=== PATIENT | female | born 1995 | race Caucasian/White ===

== ENCOUNTER 2017-11-12 14:20 | Emergency (ER) | payer OTHER ==
--- NOTE | 2017-11-12 14:33 | UC ---
Throat Pain/Nasal Jogre HPI - HPI Summary HPI Summary: Pt presents with fatigue, body aches, sinus pain/pressure/congestion, and dry cough for the last 5 days. Has been taking mucinex OTC with no relief. Denies fever, chills, SOB, chest pain, abdominal pain, n/v/d/c. - History of Current Complaint Hx Obtained From: Patient Hx Last Menstrual Period: 08/31/15 Onset/Duration: Gradual Onset Severity: Moderate Pain Intensity: 7 Pain Scale Used: 0-10 Numeric Cough: Nonproductive <Jose J Gage - Last Filed: 11/12/17 20:49> <Shena Presley - Last Filed: 11/13/17 20:14> - History of Current Complaint Stated Complaint: RUNNY NOSE,SORE THROAT,COUGH Time Seen by Provider: 11/12/17 14:33 - Allergies/Home Medications Allergies/Adverse Reactions: Allergies Allergy/AdvReac Type Severity Reaction Status Date / Time No Known Allergies Allergy Verified 11/12/17 14:34 PMH/Surg Hx/FS Hx/Imm Hx Previously Healthy: Yes - Surgical History Surgical History: Yes Surgery Procedure, Year, and Place: T&A - Family History Known Family History: Positive: None - Social History Lives: With Family Alcohol Use: None Substance Use Type: None Smoking Status (MU): Never Smoked Tobacco - Immunization History Most Recent Influenza Vaccination: "I don't remember." <Jose J Gage - Last Filed: 11/12/17 20:49> Review of Systems Constitutional: Fatigue, Other - Body aches Skin: Negative Eyes: Negative ENT: Sore Throat, Nasal Discharge, Sinus Congestion, Sinus Pain/Tenderness Respiratory: Cough Cardiovascular: Negative Gastrointestinal: Negative Neurovascular: Negative Musculoskeletal: Negative Neurological: Negative Psychological: Negative All Other Systems Reviewed And Are Negative: Yes <Jose J Gage - Last Filed: 11/12/17 20:49> Physical Exam - Summary Physical Exam Summary: GENERAL: NAD. WDWN. No pain distress. SKIN: No rashes, sores, ulcers, masses, lesions. HEENT: Head: AT/NC Eyes: EOM intact. Conjunctiva clear without inflammation or discharge. Ears: Hearing grossly normal. TMs intact, no bulging, erythema, or edema. Nose: Nasal mucosa pink and moist. TTP over frontal and maxillary sinuses Throat: Posterior oropharynx without exudates, erythema, or tonsillar enlargement. Uvula midline. NECK: Supple. Nontender. No lymphadenopathy. CHEST: CTAB. No r/r/w. No accessory muscle use. Breathing comfortably and in no distress. CV: RRR. Without m/r/g. Pulses intact. Brisk cap refill. NEURO: Alert. CN II-XII grossly intact. PSYCH: Age appropriate behavior. Triage Information Reviewed: Yes <Jose J Gage - Last Filed: 11/12/17 20:49> Vital Signs: Initial Vital Signs Temp 98.7 F 11/12/17 14:32 Pulse 71 11/12/17 14:32 Resp 18 11/12/17 14:32 BP 122/81 11/12/17 14:32 Pulse Ox 99 11/12/17 14:32 <Shena Presley - Last Filed: 11/13/17 20:14> Throat Pain/Nasal Course/Dx - Course Course Of Treatment: POC flu negative. Sinusitis - Differential Dx/Diagnosis Provider Diagnoses: Sinusitis <Jose J Gage Last Filed: 11/12/17 20:49> Discharge - Sign-Out/Discharge Documenting (check all that apply): Discharge - Billing Disposition and Condition Condition: STABLE Disposition: HOME <Jose J Gage Filed: 11/12/17 20:49> - Sign-Out/Discharge Documenting (check all that apply): Discharge - Billing Disposition and Condition Condition: STABLE Disposition: HOME <Shena Presley Last Filed: 11/13/17 20:14> - Discharge Plan Condition: Stable Disposition: HOME Prescriptions: Amoxicillin PO (*) [Amoxicillin 500 MG CAP*] 500 mg PO Q12H #20 cap Patient Education Materials: Sinusitis (ED) Referrals: Danielle Rogers NP [Primary Care Provider] - Additional Instructions: If you develop a fever, shortness of breath, chest pain, new or worsening symptoms - please call your PCP or go to the ED. Attestation Statement User Type: Provider - I was available for consult. This patient was seen by the BRANDON. The patient was not presented to, seen by, or examined by me. -Madelyn <Shena Presley - Last Filed: 11/13/17 20:14>
[2017-11-12 14:37] VITALS: BP 122/81
== END 2017-11-12 15:31 | disposition home or self-care (01) ==
LOC: UCCORT 14:20
DX: J32.9 Chronic sinusitis, unspecified (principal)
CPT/HCPCS: 87502; 99212; G0463

== ENCOUNTER 2018-05-20 09:38 | Emergency (ER) | payer OTHER ==
[2018-05-20 10:21] VITALS: BP 121/75
--- NOTE | 2018-05-20 11:31 | UC ---
Respiratory Complaint HPI - HPI Summary HPI Summary: Pt c/o worsening nasal and chest congestion and SOB. X 5 days. - History of Current Complaint Chief Complaint: UCGeneralIllness Stated Complaint: SHORTNESS OF BREATH Time Seen by Provider: 05/20/18 11:15 Hx Obtained From: Patient Hx Last Menstrual Period: 04/19/18 ?: No Onset/Duration: Sudden Onset, Lasting Days, Still Present, Worse Since - onset Timing: Constant Severity Initially: Mild Severity Currently: Moderate Pain Intensity: 8 Character: Cough: Productive Aggravating Factors: Exertion, Deep Breaths, Recumbent Position Alleviating Factors: Nothing Associated Signs And Symptoms: Positive: Chills, Wheezing, URI, Nasal Congestion - Risk Factors Pulmonary Embolism Risk Factors: Negative Cardiac Risk Factors: Negative Pseudomonas Risk Factors: Negative Tuberculosis Risk Factors: Negative - Allergies/Home Medications Allergies/Adverse Reactions: Allergies Allergy/AdvReac Type Severity Reaction Status Date / Time No Known Allergies Allergy Verified 05/20/18 10:21 Home Medications: Home Medications Metformin HCl 1,000 mg PO DAILY WITH MEAL 05/20/18 [History Confirmed 05/20/18] PMH/Surg Hx/FS Hx/Imm Hx Previously Healthy: Yes - Surgical History Surgical History: Yes Surgery Procedure, Year, and Place: T&A - Family History Known Family History: Positive: Cardiac Disease - Social History Occupation: Employed Full-time - works at a school Lives: With Family Alcohol Use: Occasionally Substance Use Type: None Smoking Status (MU): Former Smoker Have You Smoked in the Last Year: No - Immunization History Most Recent Influenza Vaccination: "I don't remember." Vaccination Up to Date: No Review of Systems Constitutional: Chills, Fatigue Skin: Negative Eyes: Negative ENT: Sinus Congestion, Sinus Pain/Tenderness Respiratory: Shortness Of Breath, Cough Cardiovascular: Negative Gastrointestinal: Negative Genitourinary: Negative Motor: Negative Neurovascular: Negative Musculoskeletal: Negative Neurological: Negative Psychological: Negative Is Patient Immunocompromised?: No All Other Systems Reviewed And Are Negative: Yes Physical Exam Triage Information Reviewed: Yes Appearance: Ill-Appearing Vital Signs: Initial Vital Signs Temp 97.8 F 05/20/18 10:15 Pulse 78 05/20/18 10:15 Resp 20 05/20/18 10:15 BP 121/75 05/20/18 10:15 Pulse Ox 98 05/20/18 10:15 Vital Signs Reviewed: Yes Eye Exam: Normal ENT Exam: Other ENT: Positive: Nasal congestion, TM bulging Dental Exam: Normal Neck exam: Normal Respiratory Exam: Normal Cardiovascular Exam: Normal Musculoskeletal Exam: Normal Neurological Exam: Normal Psychological Exam: Normal Skin Exam: Normal UC Diagnostic Evaluation - Laboratory O2 Sat by Pulse Oximetry: 98 Respiratory Course/Dx - Differential Dx/Diagnosis Differential Diagnosis/HQI/PQRI: Bronchitis, Influenza Provider Diagnoses: bronchitis Discharge - Sign-Out/Discharge Documenting (check all that apply): Patient Departure All imaging exams completed and their final reports reviewed: No Studies - Discharge Plan Condition: Stable Disposition: HOME Prescriptions: Azithromycin TAB* [Zithromax TAB (Z-LUIS CARLOS) 250 mg #6 tabs] 2 tab PO .TODAY, THEN 1 DAILY #1 luis carlos Guaifenesin/Pseudoephedrne HCl [Mucinex D ER 600-60 mg Tablet] 1 each PO Q12H # 10 tab.er.12h predniSONE TAB* [Deltasone 20 MG TAB*] 20 mg PO DAILY #4 tab Patient Education Materials: Acute Bronchitis (ED) Forms: *Work Release Referrals: Danielle Rogers, FOOD TECHNICIAN [Primary Care Provider] - If Needed Additional Instructions: Please follow up with your PCP or if symptoms worsen please sekk care at the closest emergency room. - Billing Disposition and Condition Condition: STABLE Disposition: Home - Attestation Statements Provider Attestation: I was available for consult. This patient was seen by the BRANDON. The patient was not presented to, seen by, or examined by me. -Madelyn
== END 2018-05-20 11:39 | disposition home or self-care (01) ==
LOC: UCCORT 09:38
DX: J40 Bronchitis, not specified as acute or chronic (principal); Z87.891 Personal history of nicotine dependence
CPT/HCPCS: 99212; G0463